=== PATIENT | female | born 1935 | race Caucasian/White ===

== ENCOUNTER 2016-01-12 12:42 | Inpatient (IN) | payer MEDICARE, OTHER ==
[~2016-01-12] VITALS: Ht 152.4 cm; Wt 42.3 kg
[2016-03-17] MEDS ORDERED: ASPIRIN E.C. 8181 MG PO (11:29)
[2016-03-17] MEDS ORDERED: LANOXIN 0.120.125 MG PO (11:30)
[2016-03-17] MEDS ORDERED: CALCIUM 600 PLU1 TAB PO (11:45)
[2016-03-17] MEDS ORDERED: TENORMIN 5050 MG/TAB PO (11:47)
[2016-03-17] MEDS ORDERED: OMEGA 31000 MG (11:47)
[2016-03-17] MEDS ORDERED: DITROPAN 5MG TAB5 MG PO (11:47)
[2016-03-17] MEDS ORDERED: LIPITOR 40MG TA40 MG PO (11:48)
[2016-03-17] MEDS ORDERED: LOTREL 5/20 CAP1 CAP PO (11:48)
[2016-03-17] MEDS ORDERED: PRIL40 PO (11:48)
[2016-03-17] MEDS ORDERED: KLOR-CON 1010 MEQ PO (11:49)
[2016-03-17] MEDS ORDERED: LOFIBRA134 MG PO (11:49)
[2016-03-17] MEDS ORDERED: LEXAPRO 10MG10 MG PO (11:49)
[2016-03-17] MEDS ORDERED: FERROUS SU325 MG/TAB PO (11:50)
[2016-03-17] MEDS ORDERED: FOLIC ACID 40400 MCG PO (11:50)
[2016-03-17] MEDS ORDERED: MOBIC 7.5MG7.5 MG PO (11:50)
[2016-03-17] MEDS ORDERED: VITAMIN C500 MG PO (11:51)
[2016-03-21] VITALS (11 sets, daily range): BP systolic 123–153; BP diastolic 41–64; PULSE 47–62; TEMP 98–98.2
[2016-03-22] VITALS (8 sets, daily range): BP systolic 116–168; BP diastolic 45–453; PULSE 48–110; TEMP 97.9–98.7
[2016-03-22 07:18] LABS: HEMATOCRIT 32.8 % (37.0-47.0); HEMOGLOBIN 10.6 g/dl (12.5-16.0)
[2016-03-23 06:08] VITALS: BP 173/68; PULSE 50; TEMP 98
[2016-03-23 06:41] LABS: HEMATOCRIT 34.3 % (37.0-47.0); HEMOGLOBIN 11.1 g/dl (12.5-16.0)
[2016-03-23 11:26] VITALS: BP 166/117; PULSE 66; TEMP 98.1
[2016-03-23 11:29] VITALS: BP 171/58
[2016-03-23] MEDS ORDERED: ASPIRIN 32325 MG/TAB PO (15:35)
[2016-03-23] MEDS ORDERED: NORCO 325 MG-7.1 TAB PO (15:36)
== END 2016-03-23 16:00 | disposition home or self-care (01) | DRG 470 ==
LOC: JCC 03-21 05:11 → EDSEX 03-21 07:30 → JCC 03-21 07:30
PROVIDERS: Orthopaedic Surgery
PROC: 0SRD0J9 Replacement of Left Knee Joint with Synthetic Substitute, Cemented, Open Approach (ICD-10-PCS; principal; 2016-03-21 07:30)
DX: M17.12 Unilateral primary osteoarthritis, left knee (principal)
CPT/HCPCS: A4315; A9284; C1713; C1776; J0690; J1100; J2250; J2405; J2704; J2765; J3010; J7120

== ENCOUNTER → 2016-03-14 | Outpatient (CLI) | payer MEDICARE, OTHER ==
[~2016-03-14] MED LIST: ASPIRIN 32325 MG/TAB PO; ASPIRIN E.C. 8181 MG PO; CALCIUM 600 PLU1 TAB PO; DITROPAN 5MG TAB5 MG PO; FERROUS SU325 MG/TAB PO; FOLIC ACID 40400 MCG PO; KLOR-CON 1010 MEQ PO; LANOXIN 0.120.125 MG PO; LEXAPRO 10MG10 MG PO; LIPITOR 40MG TA40 MG PO; LOFIBRA134 MG PO; LOTREL 5/20 CAP1 CAP PO; MOBIC 7.5MG7.5 MG PO; NORCO 325 MG-7.1 TAB PO; OMEGA 31000 MG; PRIL40 PO; TENORMIN 5050 MG/TAB PO; VITAMIN C500 MG PO
[2016-03-14 12:27] LABS: HIV 1/2 Antibodies Non-Reactive; HIV-1p24 Antigen Non-Reactive
== END ==
LOC: EDSEX 10:36 → COL.LAB 10:36
PROVIDERS: Orthopaedic Surgery
DX: Z01.812 Encounter for preprocedural laboratory examination (principal); M25.862 Other specified joint disorders, left knee